=== PATIENT | female | born 1970 | race Caucasian/White ===

== ENCOUNTER 2016-10-22 09:22 | Emergency (ER) | payer BC ==
[2016-10-22] MEDS ORDERED: METOCLOPRAMIDE HCL 5 MG/ML VIAL IV ONE (09:55)
[2016-10-22] MEDS ORDERED: KETOROLAC TROMETHAMINE 30 MG/ML VIAL IV ONE (09:55)
[2016-10-22] MEDS ORDERED: LORazepam 2 MG/ML DISP.SYRIN IV ONE (09:55)
[2016-10-22] MEDS ORDERED: NORMAL SALINE 1,000 ML IV ONE (09:55)
--- NOTE | 2016-10-22 09:55 | ERNOTE ---
Headache ER HPI - Narrative Date of Service: 10/22/16 - General Presenting Symptoms: headache Time Seen by Provider: 10/22/16 09:40 Source: patient Exam Limitations: no limitations - Immun/Allergies/Home Medications Immunizations: IMMUNIZATION HX History of Influenza Vaccine No Hx Pneumococcal Vaccination No Allergies/Adverse Reactions: Allergies penicillin V Allergy (Verified 10/22/16 09:50) Penicillins Allergy (Verified 10/22/16 09:50) Home Medications: HOME MEDICATIONS Butalbit/Acetamin/Caff/Codeine [Fioricet W/Codeine] 1 cap PO Q4H PRN #28 capsule 10/22/16 [Last Taken Unknown] Citalopram Hydrobromide [Citalopram HBr] 20 mg PO DAILY 10/22/16 [Last Taken Unknown] Cyclobenzaprine HCl [Flexeril] 1 tab PO Q8H PRN #24 tab 10/22/16 [Last Taken Unknown] Metoclopramide HCl [Reglan] 1 tab PO Q6H PRN #30 tab 10/22/16 [Last Taken Unknown] - Pain Pain Score: 8 - History of Present Illness Timing of Headache: abrupt Context Headache: Present: new onset. Absent: tick bite, recent head injury < 24 hrs ago, recent head injury > 24 hrs, recent travel-outside [place] Quality: Present: throbbing Severity Maximum: Present: severe Severity-Currently: Present: severe Headache frequency: Present: occasional headaches, similar to previous headache Modifying Factors - (Worsens): Reports: exposure to light Associated Symptoms: Reports: nausea. Denies: fever/chills, vomiting, sweating , nasal congestion, nasal drainage, facial pain, fatigue, weakness, numbness/ tingling, vision changes, confusion, light-headedness, dizziness, loss of consciousness, seizures, neck pain/stiffness, speech problems Exacerbated by:: Reports: light Review of Systems - Review of Systems Constitutional: Present: no symptoms reported EYE: Present: no symptoms reported ENT: Present: no symptoms reported Respiratory: Present: no symptoms reported Cardiology: Present: no symptoms reported Gastrointestinal/Abdominal: Present: no symptoms reported Genitourinary: Present: no symptoms reported Musculoskeletal: Present: no symptoms reported Skin: Present: no symptoms reported Neurological: Present: See HPI Endocrine: Present: no symptoms reported Hematologic/Lymphatic: Present: no symptoms reported Psych: Present: no symptoms reported All Other Systems: All systems neg except as marked - Patient's Past Medical History Patient History - Medical: Depression, Headache Patient History - Cardiac/Respiratory: No pertinent hx Patient History - Cancer: No Hx of Cancer Patient History - Surgical Procedures: No surgical history Patient History - Other: None - Social History Living Situations: home Psych History: Hx of Depression Alcohol Use: none Drug Use: none - Immunizations Hx Pneumococcal Vaccination: No History of Influenza Vaccine: No Physical Exam - Physical Exam General Appearance: Present: wd/wn, alert, no apparent distress Eye Exam: Normal inspection: bilateral, PERRL: bilateral, EOMI: bilateral Ears, Nose, Throat: Present: normal ENT inspection, normal pharynx Neck: Present: normal inspection, nontender Respiratory: Present: no respiratory distress, normal breath sounds, no accessory muscle use, chest nontender, lungs clear Cardiovascular/Chest: Present: regular rate, rhythm, no murmur Gastrointestinal/Abdominal: Present: normal bowel sounds, nontender, nondistended, soft, no organomegaly Extremity Exam: Present: normal inspection, non-tender, normal range of motion, no edema Neurological Exam: Present: alert, oriented, normal mood/affect, no motor/ sensory deficits Skin Exam: Present: normal color, warm/dry ED Progress - Vital Signs Patient's Vital Signs:: I have reviewed the patient's vital signs. Vital Signs: Vital Signs 10/22/16 09:47 Temperature 35.8 C L Pulse Rate 95 Respiratory 12 Rate Blood Pressure 126/98 O2 Sat by Pulse 98 Oximetry - Progress/Reassessment Chief Complaint: Headache Progress:: Improved Departure Clinical Impression: Headache, common migraine Qualifiers: Status migrainosus presence: without status migrainosus Intractability: not intractable Qualified Code(s): G43.009 - Migraine without aura, not intractable , without status migrainosus - Departure Disposition: Home self-care Condition: Good Instructions: Migraine Headache, [id number] Referrals: Olga Boyd DO [Primary Care Provider] - Prescriptions: Butalbit/Acetamin/Caff/Codeine [Fioricet W/Codeine] 1 cap PO Q4H PRN #28 capsule PRN Reason: Headache Cyclobenzaprine HCl [Flexeril] 1 tab PO Q8H PRN #24 tab PRN Reason: Neck pain Metoclopramide HCl [Reglan] 1 tab PO Q6H PRN #30 tab PRN Reason: Nausea
--- OUTSIDE RECORDS SUMMARY | 2016-10-22 10:17 | XMS REPORT | Continuity of Care Document ---
:1970 Author Organization [facility] ([facility]) Address [place] [address] Phone [phone] Care Team Providers Name Role Phone [phone], Need To Check Primary Care Provider Unavailable Source Comments This disclosure is being made pursuant to the Care Everywhere program, applicable federal and state laws, and may not contain all informaitonavailable regarding this patient.[facility] ([facility]) Active Allergies and Adverse Reactions Allergen Noted Date Severity Reactions Comments Penicillins 07/08/2012 Urticaria (Hives) Current Medications Prescription Sig. Disp. Refills Start Date End Date Status clomiPHENE 50 mg tablet Take 1 Tab by mouth 5 Tab 2 07/08/2012 Active daily. Take on days 3 through 7 of cycle. 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
[2016-10-22] MEDS ORDERED: KETOROLAC TROMETHAMINE 30 MG/ML VIAL ONE (10:32)
[2016-10-22] MEDS ORDERED: METOCLOPRAMIDE HCL 5 MG/ML VIAL ONE (10:33)
[2016-10-22] MEDS ORDERED: LORazepam 2 MG/ML DISP.SYRIN ONE (10:33)
[2016-10-22 11:43] VITALS: BP 114/67
== END 2016-10-22 13:40 | disposition home or self-care (01) ==
LOC: ER 09:22
DX: G43.009 Migraine without aura, not intractable, without status migrainosus (principal); F32.9 Major depressive disorder, single episode, unspecified